=== PATIENT | female | born 1965 | race Caucasian/White ===

== ENCOUNTER 2018-01-17 14:29 | Emergency (ER) | payer OTHER ==
[~2018-01-17] VITALS: Ht 162.6 cm; Wt 84.4 kg
[2018-01-17 14:51] VITALS: BP 131/72
--- NOTE | 2018-01-17 15:03 | NUR ---
52/f BIB WITH C/O EPIGASTRIC PAIN , abdomen bloating, reflux x 8 days, progressively getting worse. seen by primary. sent home with rx of omeprazole with little improvement. DENIES N/V/D; SKIN IS PINK/WARM/DRY; AAOX4 WITH EVEN AND STEADY GAIT; LUNGS CLEAR BL.PATIENT STATES PAIN OF 5/10 AT THIS TIME. PATIENT POSITIONED FOR COMFORT; HOB ELEVATED; BEDRAILS UP X2; BED DOWN. ER MD MADE AWARE OF PT STATUS.
--- NOTE | 2018-01-17 15:28 | NUR ---
Patient being evaluated by DR GREER at bedside.
--- NOTE | 2018-01-17 15:42 | NUR ---
lab at bedside.
[2018-01-17 15:58] LABS: BASOPHILS % (AUTO) 0.4 % (0.0-2.0); EOSINOPHILS # (AUTO) 0.1 K/uL (0-0.4); EOSINOPHILS % (AUTO) 0.9 % (0.0-4.0); HEMATOCRIT 40.6 % (36-48); HEMOGLOBIN 13.3 g/dL (12.0-16.0); LYMPHOCYTES # (AUTO) 1.9 K/uL (2.5-16.5); LYMPHOCYTES % (AUTO) 20.6 % (20.5-51.1); MEAN CORPUSCULAR HEMOGLOBIN 27 pg (27-31); MEAN CORPUSCULAR HGB CONC 33 g/dL (33-37); MEAN CORPUSCULAR VOLUME 82.6 fL (80-94); MONOCYTES # (AUTO) 0.5 K/uL (0.8-1.0); NEUTROPHILS # (AUTO) 6.9 K/uL (1.8-7.7); NEUTROPHILS % (AUTO) 73.1 % (42.2-75.2); PLATELET COUNT (AUTO) 262 K/uL (140-450); RED BLOOD CELL COUNT(AUTO) 4.91 MIL/uL (4.20-5.40); RED CELL DISTRIBUTION WIDTH 14.6 % (11.6-13.7); WHITE BLOOD COUNT (AUTO) 9.4 K/uL (4.8-10.8)
[2018-01-17 16:01] LABS: APPEARANCE,URINE SL CLOUDY (CLEAR); BILIRUBIN,URINE NEGATIVE (NEGATIVE); BLOOD, URINE 1+ (NEGATIVE); COLOR,URINE YELLOW (YELLOW); LEUKOCYTE ESTERASE ,URINE 1+ (NEGATIVE); NITRITE, URINE NEGATIVE (NEGATIVE); PH,URINE 5.5 (5.0-9.0); UGLUCOSE NEGATIVE (NEGATIVE)
--- NOTE | 2018-01-17 16:01 | NUR ---
US AT BEDSIDE.
[2018-01-17 16:19] LABS: RBC,URINE 3-10 (FEW) /HPF (0-5); WBC,URINE 16-25 (MOD) /HPF (0-5)
[2018-01-17 16:28] LABS: CARBON DIOXIDE 27.6 mmol/L (21-32); CREATININE 0.6 mg/dL (0.6-1.3); POTASSIUM 3.6 mmol/L (3.5-5.1)
[2018-01-17 16:34] LABS: ALBUMIN 3.9 g/dL (3.4-5.0); TOTAL BILIRUBIN 0.4 mg/dL (0.0-1.0)
--- NOTE | 2018-01-17 16:50 | NUR ---
Patient being reevaluated by DR GREER at bedside.
--- NOTE | 2018-01-17 17:00 | NUR ---
Patient discharged with v/s stable. Written and verbal after care instructions given and explained. Patient alert, oriented and verbalized understanding of instructions. Ambulatory with steady gait. All questions addressed prior to discharge. ID band removed. Patient advised to follow up with PMD. Rx of CEPHALEXIN, ZOFRAN ODT, NORCO given. Patient educated on indication of medication including possible reaction and side effects. Opportunity to ask questions provided and answered.
[2018-01-17 17:01] VITALS: BP 136/68
== END 2018-01-17 17:00 | disposition home or self-care (01) ==
LOC: MED 14:29
DX: K80.80 Other cholelithiasis without obstruction (principal); N39.0 Urinary tract infection, site not specified
CPT/HCPCS: 36415; 76705; 80053; 81001; 81025; 83690; 84484; 85025; 87086; 93005; 99285; Q0092

== ENCOUNTER 2018-09-05 12:06 | Emergency (ER) | payer OTHER ==
[~2018-09-05] VITALS: Ht 162.6 cm; Wt 86.2 kg
[2018-09-05 12:08] VITALS: BP 155/92
[2018-09-05 14:23] VITALS: BP 140/80
== END 2018-09-05 14:23 | disposition home or self-care (01) ==
LOC: MED 12:06
DX: S16.1XXA Strain of muscle, fascia and tendon at neck level, initial encounter (principal); S39.012A Strain of muscle, fascia and tendon of lower back, initial encounter; S80.02XA Contusion of left knee, initial encounter; V47.5XXA Car driver injured in collision with fixed or stationary object in traffic accident, initial encounter; Y93.I9 Activity, other involving external motion; Y92.488 Other paved roadways as the place of occurrence of the external cause; Y99.8 Other external cause status
CPT/HCPCS: 73562; 99283

== ENCOUNTER 2019-08-07 11:07 | Emergency (ER) | payer OTHER ==
[~2019-08-07] VITALS: Ht 160 cm; Wt 86.2 kg
--- NOTE | 2019-08-07 11:11 | NUR ---
Patient ambulated to bed 2. RN evaluating patient at bedside.
[2019-08-07 11:16] VITALS: BP 177/83
--- NOTE | 2019-08-07 11:26 | NUR ---
PATIENT PRESENTS TO ED WITH DIZZINESS X 3 DAYS. PT DESCRIBES IT "SPINNING A LITTLE BIT." -N/V/D, -CP, -H/A, -NUMBNESS, -WEAKNESS, -FLU-LIKE SYMPTOMS. PT IS AOOX4, WITH STEADY GAIT, AMBULATORY. PERRL 3MM. GCS 15. PATIENT STATES PAIN OF 0/10 AT THIS TIME; VSS; PATIENT POSITIONED FOR COMFORT; HOB ELEVATED; BEDRAILS UP X2; BED DOWN. DR. ROE SAW PATIENT AT BEDSIDE. LMP: 2 MONTHS AGO PMH: NONE MEDS: NONE
[2019-08-07] MEDS ORDERED: NACL 0.9% 1,000 ML IV ONE (11:30)
[2019-08-07] MEDS ORDERED: ONDANSETRON 4 MG/2 ML VIAL IVP ONE (11:30)
[2019-08-07] MEDS ORDERED: MECLIZINE 25 MG TAB PO ONE (11:30)
[2019-08-07] MEDS ORDERED: hydrALAZINE 20 MG/ML VIAL IVP ONE (11:45)
[2019-08-07 11:50] LABS: BASOPHILS # (AUTO) 0.1 K/uL (0.00-0.22); BASOPHILS % (AUTO) 0.7 % (0.0-2.0); EOSINOPHILS # (AUTO) 0.1 K/uL (0-0.4); EOSINOPHILS % (AUTO) 0.7 % (0.0-4.0); HEMATOCRIT 44.4 % (36-48); HEMOGLOBIN 14.8 g/dL (12.0-16.0); LYMPHOCYTES # (AUTO) 2.1 K/uL (2.5-16.5); LYMPHOCYTES % (AUTO) 22.5 % (20.5-51.1); MEAN CORPUSCULAR HEMOGLOBIN 28 pg (27-31); MEAN CORPUSCULAR HGB CONC 33 g/dL (33-37); MEAN CORPUSCULAR VOLUME 84.3 fL (80-94); MONOCYTES # (AUTO) 0.4 K/uL (0.8-1.0); MONOCYTES % (AUTO) 4.7 % (1.7-9.3); NEUTROPHILS # (AUTO) 6.8 K/uL (1.8-7.7); NEUTROPHILS % (AUTO) 71.4 % (42.2-75.2); PLATELET COUNT (AUTO) 250 K/uL (140-450); RED BLOOD CELL COUNT(AUTO) 5.27 MIL/uL (4.20-5.40); RED CELL DISTRIBUTION WIDTH 13.7 % (11.6-13.7); WHITE BLOOD COUNT (AUTO) 9.5 K/uL (4.8-10.8)
[2019-08-07 12:17] LABS: ANION GAP 14.7 (8-16); CARBON DIOXIDE 27.8 mmol/L (21-32); CREATININE 0.7 mg/dL (0.6-1.3); POTASSIUM 3.5 mmol/L (3.5-5.1)
[2019-08-07 12:22] LABS: ALBUMIN 4.6 g/dL (3.4-5.0); TOTAL BILIRUBIN 0.4 mg/dL (0.0-1.0)
--- NOTE | 2019-08-07 13:00 | NUR ---
Patient discharged with v/s stable. Written and verbal after care instructions given and explained. Patient verbalized understanding. Ambulatory with steady gait. All questions addressed prior to discharge. Advised to follow up with PMD.
[2019-08-07 13:21] VITALS: BP 145/80
== END 2019-08-07 13:00 | disposition home or self-care (01) ==
LOC: MED 11:07
DX: R42 Dizziness and giddiness (principal); E86.0 Dehydration; R03.0 Elevated blood-pressure reading, without diagnosis of hypertension; R11.0 Nausea
CPT/HCPCS: 36415; 80053; 85025; 93005; 96360; 99284; J7030; J8597; J0360; J2405

== ENCOUNTER 2019-10-02 09:43 | Emergency (ER) | payer OTHER ==
[~2019-10-02] VITALS: Ht 162.6 cm; Wt 81.6 kg
[2019-10-02 09:49] VITALS: BP 172/62
--- NOTE | 2019-10-02 09:54 | NUR ---
TRIAGE COMPLETE. VSS. RETURNED TO LOBBY TO WAIT FOR BED IN ED.
--- NOTE | 2019-10-02 10:11 | NUR ---
PT TAKEN TO BED 7 WITH STEADY GAIT.
--- NOTE | 2019-10-02 10:16 | NUR ---
PT C/O EPIGASTRIC PAIN W/ BLOATING, CONSTIPATION, NAUSEA, LOSS OF APPETITE FOR 3 DAYS, AND OCCASIONAL MILD RUQ ABDOMINAL PAIN. PATIENT STATES PAIN OF 2/10 AT THIS TIME; VSS; PATIENT POSITIONED FOR COMFORT; HOB ELEVATED; BEDRAILS UP X1; BED DOWN. ER MD MADE AWARE OF PT STATUS.
--- NOTE | 2019-10-02 11:25 | NUR ---
pt is resting in the bed with eyes opened.
[2019-10-02 12:00] LABS: APPEARANCE,URINE SL CLOUDY (CLEAR); BILIRUBIN,URINE 1+ (NEGATIVE); BLOOD, URINE 2+ (NEGATIVE); COLOR,URINE YELLOW (YELLOW); LEUKOCYTE ESTERASE ,URINE 1+ (NEGATIVE); NITRITE, URINE NEGATIVE (NEGATIVE); UGLUCOSE NEGATIVE (NEGATIVE)
[2019-10-02 13:14] VITALS: BP 159/91
--- NOTE | 2019-10-02 13:14 | NUR ---
Patient discharged with v/s stable by Dr. Gonzalez. Rx of Macrodantin given. Patient educated on indication of medication including possible reaction and side effects. Opportunity to ask questions provided and answered.
== END 2019-10-02 13:14 | disposition home or self-care (01) ==
LOC: MED 09:43
DX: N39.0 Urinary tract infection, site not specified (principal)
CPT/HCPCS: 81001; 87086; 99283

== ENCOUNTER 2019-12-01 11:03 | Emergency (ER) | payer SELFPAY ==
[~2019-12-01] VITALS: Ht 162.6 cm; Wt 86.2 kg
[2019-12-01 11:12] VITALS: BP 160/92
--- NOTE | 2019-12-01 11:17 | NUR ---
URINE CUP HANDED TO PT FOR SAMPLE
--- NOTE | 2019-12-01 11:30 | NUR ---
RECEVIED A 54/F FROM TRIAGE WITH A C/O ANXIETY AND DRY MOUTH X 1 MONTH. NO DISTRESS NOTED. IN BED FOR MSE. HX--PANIC ATTACKS, GASTRITIS RX---NONE
[2019-12-01 12:42] VITALS: BP 160/92
== END 2019-12-01 12:42 | disposition home or self-care (01) ==
LOC: MED 11:03
DX: K21.9 Gastro-esophageal reflux disease without esophagitis (principal); F41.9 Anxiety disorder, unspecified
CPT/HCPCS: 81002; 81025; 99283

== ENCOUNTER 2020-07-27 10:43 | Emergency (ER) | payer OTHER ==
[~2020-07-27] VITALS: Ht 162.6 cm; Wt 81.6 kg
[2020-07-27 10:49] VITALS: BP 164/83
--- NOTE | 2020-07-27 10:58 | NUR ---
Dr. Roth is evaluating the patient at bedside.
--- NOTE | 2020-07-27 11:02 | NUR ---
Note henri in EDM - 07/27/20 at 1306 by MED1 20 y/o female c/o ear pain. Pt states both ears and cheeks feel "hot". Has rinsed with water, iced with no relief. Pt states she cannot sleep, unable to lay on affected area. Both ears and cheeks to jaw are red, slight swelling, warm to touch. Skin is intact. No pmh but states that this has stareted since September 2019. NKA or RX.
--- NOTE | 2020-07-27 11:03 | NUR ---
54 y/o A&OX4 female c/o chest pain 6/10 since 1800 last night. Pt describes pain as heart burn, denies N/V. Pt is calm, cooperative. Pt is sinus tachycardic HR 115, RR 18, BP 155/85, on room air at 97%.
[2020-07-27] MEDS ORDERED: ASPIRIN 81 MG TAB.CHEW PO ONE (11:10)
[2020-07-27] MEDS ORDERED: FAMOTIDINE 20 MG TAB PO ONE (11:10)
--- NOTE | 2020-07-27 11:28 | NUR ---
reuse technician at pt bedside for blood draw.
[2020-07-27 11:39] LABS: BASOPHILS % (AUTO) 0.4 % (0.0-2.0); EOSINOPHILS # (AUTO) 0.1 K/uL (0-0.4); EOSINOPHILS % (AUTO) 0.7 % (0.0-4.0); HEMATOCRIT 43.6 % (36-48); HEMOGLOBIN 14.6 g/dL (12.0-16.0); LYMPHOCYTES # (AUTO) 1.8 K/uL (2.5-16.5); MEAN CORPUSCULAR HEMOGLOBIN 28 pg (27-31); MEAN CORPUSCULAR HGB CONC 33 g/dL (33-37); MEAN CORPUSCULAR VOLUME 83.4 fL (80-94); MONOCYTES # (AUTO) 0.4 K/uL (0.8-1.0); MONOCYTES % (AUTO) 4.5 % (1.7-9.3); NEUTROPHILS # (AUTO) 6.6 K/uL (1.8-7.7); NEUTROPHILS % (AUTO) 74.4 % (42.2-75.2); PLATELET COUNT (AUTO) 217 K/uL (140-450); RED BLOOD CELL COUNT(AUTO) 5.23 MIL/uL (4.20-5.40); WHITE BLOOD COUNT (AUTO) 8.9 K/uL (4.8-10.8)
--- NOTE | 2020-07-27 11:40 | NUR ---
component lab tech at bedside.
[2020-07-27 11:49] LABS: ANION GAP 13.3 (8-16); CARBON DIOXIDE 27.4 mmol/L (21-32); CREATININE 0.7 mg/dL (0.6-1.3); POTASSIUM 3.7 mmol/L (3.5-5.1)
[2020-07-27 11:55] LABS: ALBUMIN 4.5 g/dL (3.4-5.0); TOTAL BILIRUBIN 0.6 mg/dL (0.0-1.0)
--- NOTE | 2020-07-27 13:12 | NUR ---
Pt resting, repositioned. VSS. Will continue to monitor.
--- NOTE | 2020-07-27 13:35 | NUR ---
Performed EKG per MD order.
[2020-07-27 14:48] VITALS: BP 158/74
--- NOTE | 2020-07-27 14:49 | NUR ---
Patient discharged with v/s stable. Written and verbal after care instructions given and explained. Patient alert, oriented and verbalized understanding of instructions. Ambulatory with steady gait. All questions addressed prior to discharge. ID band removed. Patient advised to follow up with PMD. Rx of omeprazole 40mg 1 cap PO daily, zofran ODT 40mg PO Q8hrs RN nausea/vomiting given. Patient educated on indication of medication including possible reaction and side effects. Opportunity to ask questions provided and answered.
== END 2020-07-27 14:49 | disposition home or self-care (01) ==
LOC: MED 10:43
DX: K29.70 Gastritis, unspecified, without bleeding (principal); R07.9 Chest pain, unspecified; R03.0 Elevated blood-pressure reading, without diagnosis of hypertension; F41.9 Anxiety disorder, unspecified
CPT/HCPCS: 36415; 71045; 80053; 84484; 85025; 93005; 99285

== ENCOUNTER 2020-10-25 12:25 | Emergency (ER) | payer OTHER ==
[~2020-10-25] VITALS: Ht 162.6 cm; Wt 81.6 kg
[2020-10-25 12:27] VITALS: BP 166/89
[2020-10-25 13:34] LABS: BASOPHILS % (AUTO) 0.4 % (0.0-2.0); EOSINOPHILS # (AUTO) 0.1 K/uL (0-0.4); EOSINOPHILS % (AUTO) 0.8 % (0.0-4.0); HEMATOCRIT 42.9 % (36-48); HEMOGLOBIN 14.2 g/dL (12.0-16.0); LYMPHOCYTES # (AUTO) 1.9 K/uL (2.5-16.5); LYMPHOCYTES % (AUTO) 17.6 % (20.5-51.1); MEAN CORPUSCULAR HEMOGLOBIN 28 pg (27-31); MEAN CORPUSCULAR HGB CONC 33 g/dL (33-37); MEAN CORPUSCULAR VOLUME 83.4 fL (80-94); MONOCYTES # (AUTO) 0.4 K/uL (0.8-1.0); MONOCYTES % (AUTO) 3.9 % (1.7-9.3); NEUTROPHILS # (AUTO) 8.2 K/uL (1.8-7.7); NEUTROPHILS % (AUTO) 77.3 % (42.2-75.2); PLATELET COUNT (AUTO) 248 K/uL (140-450); RED BLOOD CELL COUNT(AUTO) 5.15 MIL/uL (4.20-5.40); RED CELL DISTRIBUTION WIDTH 14.8 % (11.6-13.7); WHITE BLOOD COUNT (AUTO) 10.6 K/uL (4.8-10.8)
[2020-10-25 13:56] LABS: ALBUMIN 4.6 g/dL (3.4-5.0); ANION GAP 11.2 (8-16); CARBON DIOXIDE 27.6 mmol/L (21-32); CREATININE 0.7 mg/dL (0.6-1.3); POTASSIUM 3.8 mmol/L (3.5-5.1); TOTAL BILIRUBIN 0.3 mg/dL (0.0-1.0)
--- NOTE | 2020-10-25 14:24 | NUR ---
55 YEAR OLD PATIENT COMPLAINS OF CONSTIPATION X 2 DAYS. LAST BM 10/22/2020. HYPOACTIVE BOWEL SOUNDS THROUGHOUT. DENIES PRESENCE OF FLATUS, VERBALIZES FEELING BLOATED, 5/10 PAIN. PATIENT VERBALIZED INCREASED CONSUMPTION OF DAIRY-CONTAINING PRODUCTS AND DECREASED CONSUMPTION OF WATER. AO4, BREATHING EVEN AND UNLABORED, SKIN WARM AND DRY. BED IN LOWEST POSITION, LOCKED, X1 SIDERAIL UP. PMH - DENIED NKA
--- NOTE | 2020-10-25 14:50 | NUR ---
Patient discharged with v/s stable. Written and verbal after care instructions ABOUT ABDOMINAL PAIN given and explained in [place]. Patient alert, oriented and verbalized understanding of instructions. Ambulatory with steady gait. All questions addressed prior to discharge. ID band removed. Patient advised to follow up with PMD. Rx of DOCUSATE SODIUM given. Patient educated on indication of medication including possible reaction and side effects. Opportunity to ask questions provided and answered.
[2020-10-25 14:57] VITALS: BP 166/89
== END 2020-10-25 14:50 | disposition home or self-care (01) ==
LOC: MED 12:25
DX: R10.13 Epigastric pain (principal); R11.0 Nausea; K21.9 Gastro-esophageal reflux disease without esophagitis
CPT/HCPCS: 36415; 74018; 80053; 81002; 83690; 84484; 85025; 93005; 99285

== ENCOUNTER 2021-05-27 07:39 | Emergency (ER) | payer OTHER ==
[~2021-05-27] VITALS: Ht 165.1 cm; Wt 81.6 kg
[2021-05-27 07:42] VITALS: BP 145/77
--- NOTE | 2021-05-27 07:47 | NUR ---
Patient ambulated with steady to bed 7.
--- NOTE | 2021-05-27 07:52 | NUR ---
55/F presents to ED with c/o abdominal pain. Patient states she has had worsening epigastric pain radiating to her right upper and lower quadrants for 4 days. Patient states sharp 6/10 pain, denies taking anything at home, reports intermittent episodes of nausea, denies diarrhea or vomiting. Denies fever, chills, chest pain, states pain worsens with deep breath or touch.
[2021-05-27] MEDS ORDERED: KETOROLAC 30 MG/ML VIAL IM ONE (08:30)
[2021-05-27 08:44] LABS: APPEARANCE,URINE CLEAR (CLEAR); BILIRUBIN,URINE NEGATIVE (NEGATIVE); COLOR,URINE YELLOW (YELLOW); LEUKOCYTE ESTERASE ,URINE 1+ (NEGATIVE); NITRITE, URINE NEGATIVE (NEGATIVE); UGLUCOSE NEGATIVE (NEGATIVE)
[2021-05-27 08:51] LABS: BASOPHILS % (AUTO) 0.5 % (0.0-2.0); EOSINOPHILS # (AUTO) 0.1 K/uL (0-0.4); EOSINOPHILS % (AUTO) 0.8 % (0.0-4.0); HEMATOCRIT 45.4 % (36-48); HEMOGLOBIN 15.2 g/dL (12.0-16.0); LYMPHOCYTES % (AUTO) 22.8 % (20.5-51.1); MEAN CORPUSCULAR HEMOGLOBIN 28 pg (27-31); MEAN CORPUSCULAR HGB CONC 34 g/dL (33-37); MONOCYTES # (AUTO) 0.4 K/uL (0.8-1.0); MONOCYTES % (AUTO) 4.4 % (1.7-9.3); NEUTROPHILS # (AUTO) 6.1 K/uL (1.8-7.7); NEUTROPHILS % (AUTO) 71.5 % (42.2-75.2); PLATELET COUNT (AUTO) 248 K/uL (140-450); RED CELL DISTRIBUTION WIDTH 14.2 % (11.6-13.7); WHITE BLOOD COUNT (AUTO) 8.6 K/uL (4.8-10.8)
--- NOTE | 2021-05-27 08:51 | NUR ---
Labs collected bedside and handed to laborer [employer].
--- NOTE | 2021-05-27 08:55 | NUR ---
Ultrasound at bedside.
[2021-05-27 08:57] LABS: BLOOD, URINE 1+ (NEGATIVE); RBC,URINE 0-5 /HPF (0-5); WBC,URINE 0-5 /HPF (0-5)
[2021-05-27 09:04] LABS: ANION GAP 14.9 (8-16); CARBON DIOXIDE 27.9 mmol/L (21-32); CREATININE 0.7 mg/dL (0.6-1.3); POTASSIUM 3.8 mmol/L (3.5-5.1)
[2021-05-27 09:09] LABS: ALBUMIN 4.4 g/dL (3.4-5.0); TOTAL BILIRUBIN 0.5 mg/dL (0.0-1.0)
[2021-05-27] MEDS ORDERED: MAG-27 PO (09:31)
[2021-05-27] MEDS ORDERED: NAPR-54 PO (09:31)
[2021-05-27 09:42] VITALS: BP 130/51
--- NOTE | 2021-05-27 09:42 | NUR ---
Patient discharged with v/s stable. Written and verbal after care instructions given and explained ABOUT CHOLELITHIASIS AND ABDOMINAL PAIN. Patient alert, oriented and verbalized understanding of instructions. Ambulatory with steady gait. All questions addressed prior to discharge. ID band removed. Patient advised to follow up with PMD. Rx of MYLANTA AND NAPROSYN given. Patient educated on indication of medication including possible reaction and side effects. Opportunity to ask questions provided and answered.
== END 2021-05-27 09:42 | disposition admitted as inpatient to this hospital (09) ==
LOC: MED 07:39
DX: K80.20 Calculus of gallbladder without cholecystitis without obstruction (principal); K21.9 Gastro-esophageal reflux disease without esophagitis; Z79.899 Other long term (current) drug therapy
CPT/HCPCS: 36415; 76705; 80053; 81001; 83690; 85025; 87086; 93005; 96372; 99285; J1885; Q0092

== ENCOUNTER 2021-11-27 21:35 | Emergency (ER) | payer OTHER ==
[~2021-11-27] VITALS: Ht 162.6 cm; Wt 86.2 kg
[~2021-11-27 21:35] MED LIST: MAG-27 PO; NAPR-54 PO
[2021-11-27 21:45] VITALS: BP 150/78
--- NOTE | 2021-11-27 22:47 | NUR ---
at [facility] to exam patient.
--- NOTE | 2021-11-27 22:54 | NUR ---
Patient BIB by family from home. C/O Constipation x 4 days. Patient reported, felt bloating abdominal pain for 4 days and contipation. Hx GERD and Gallstone.
--- NOTE | 2021-11-27 23:14 | NUR ---
Patient transport to [facility] via wheelchair with radiology ct technologist.
[2021-11-27] MEDS ORDERED: BISM262C47 PO (23:45)
[2021-11-27] MEDS ORDERED: MAGNESIUM CITRATE 300 ML BTL PO ONE (23:45)
[2021-11-28 00:10] VITALS: BP 150/78
--- NOTE | 2021-11-28 00:10 | NUR ---
Patient discharged with v/s stable. Written and verbal after care instructions given and explained. Patient alert, oriented and verbalized understanding of instructions. Ambulatory with steady gait. All questions addressed prior to discharge. ID band removed. Patient advised to follow up with PMD. Rx of Pepto-Bismol given. Patient educated on indication of medication including possible reaction and side effects. Opportunity to ask questions provided and answered.
== END 2021-11-28 00:10 | disposition home or self-care (01) ==
LOC: MED 21:35
DX: K59.00 Constipation, unspecified (principal); R41.0 Disorientation, unspecified; K21.9 Gastro-esophageal reflux disease without esophagitis; Z87.19 Personal history of other diseases of the digestive system
CPT/HCPCS: 74018; 99282; 99283

== ENCOUNTER 2022-01-29 06:37 | Emergency (ER) | payer OTHER ==
[~2022-01-29] VITALS: Ht 162.6 cm; Wt 89.4 kg
[~2022-01-29 06:37] MED LIST changes: +BISM262C47 PO
[2022-01-29 06:44] VITALS: BP 123/74
--- NOTE | 2022-01-29 06:55 | NUR ---
PT TAKEN TO BED 09.
--- NOTE | 2022-01-29 07:10 | NUR ---
SPOKE TO , NO NURSING INTERVENTIONS REQUIRED.
[2022-01-29] MEDS ORDERED: IBUP-1842 PO (07:15)
[2022-01-29 07:19] VITALS: BP 123/74
== END 2022-01-29 07:19 | disposition home or self-care (01) ==
LOC: MED 06:37
DX: K80.50 Calculus of bile duct without cholangitis or cholecystitis without obstruction (principal); K21.9 Gastro-esophageal reflux disease without esophagitis; Z79.899 Other long term (current) drug therapy
CPT/HCPCS: 81002; 99282

== ENCOUNTER 2022-07-31 23:30 | Emergency (ER) | payer OTHER ==
[~2022-07-31] VITALS: Ht 165.1 cm; Wt 90.7 kg
[~2022-07-31 23:30] MED LIST changes: +IBUP-1842 PO
[2022-08-01 00:05] VITALS: BP 145/80
--- NOTE | 2022-08-01 00:08 | NUR ---
TO LOBBY A/W BED AMBULATORY
--- NOTE | 2022-08-01 01:05 | NUR ---
PT TAKEN TO BED 7
[2022-08-01] MEDS ORDERED: DICYCLOMINE 20 MG/2 ML VIAL IM ONE (01:25)
--- NOTE | 2022-08-01 01:37 | NUR ---
56 YO F BIB SELF WITH C/C OF 7/10 ABD PAIN X2DAYS. PT REPORTS NAUSEA. DENIES V/D. DENIES DIARRHEA. DENIES TAKING MEDICATION FOR PAIN. PT STATES SHE FEELS DISTENDED. DENIES HX, RX AND ALLERGIES
[2022-08-01 01:39] LABS: APPEARANCE,URINE CLEAR (CLEAR); BILIRUBIN,URINE NEGATIVE (NEGATIVE); BLOOD, URINE 3+ (NEGATIVE); COLOR,URINE YELLOW (YELLOW); LEUKOCYTE ESTERASE ,URINE 2+ (NEGATIVE); NITRITE, URINE NEGATIVE (NEGATIVE); UGLUCOSE NEGATIVE (NEGATIVE)
[2022-08-01 01:42] LABS: BASOPHILS # (AUTO) 0.1 K/uL (0.00-0.22); BASOPHILS % (AUTO) 0.6 % (0.0-2.0); EOSINOPHILS # (AUTO) 0.1 K/uL (0-0.4); EOSINOPHILS % (AUTO) 0.8 % (0.0-4.0); HEMATOCRIT 41.4 % (36-48); HEMOGLOBIN 13.6 g/dL (12.0-16.0); LYMPHOCYTES # (AUTO) 2.2 K/uL (2.5-16.5); LYMPHOCYTES % (AUTO) 15.6 % (20.5-51.1); MEAN CORPUSCULAR HEMOGLOBIN 27 pg (27-31); MEAN CORPUSCULAR HGB CONC 33 g/dL (33-37); MEAN CORPUSCULAR VOLUME 83.3 fL (80-94); MONOCYTES # (AUTO) 0.7 K/uL (0.8-1.0); MONOCYTES % (AUTO) 5.3 % (1.7-9.3); NEUTROPHILS # (AUTO) 10.9 K/uL (1.8-7.7); NEUTROPHILS % (AUTO) 77.7 % (42.2-75.2); PLATELET COUNT (AUTO) 235 K/uL (140-450); RED BLOOD CELL COUNT(AUTO) 4.97 MIL/uL (4.20-5.40); RED CELL DISTRIBUTION WIDTH 14.3 % (11.6-13.7)
[2022-08-01 01:58] LABS: ALBUMIN 3.9 g/dL (3.4-5.0); ANION GAP 12.7 (8-16); CARBON DIOXIDE 28.4 mmol/L (21-32); CREATININE 0.6 mg/dL (0.6-1.3); POTASSIUM 4.1 mmol/L (3.5-5.1); TOTAL BILIRUBIN 0.4 mg/dL (0.0-1.0)
[2022-08-01 02:11] LABS: RBC,URINE 0-5 /HPF (0-5); WBC,URINE >25 (MANY) /HPF (0-5)
--- NOTE | 2022-08-01 02:48 | NUR ---
PT ASLEEP WITH HOB ELEVATED. RESP EVEN AND UNLABORED.
[2022-08-01] MEDS ORDERED: CEPH-588 PO (03:04)
[2022-08-01 03:11] VITALS: BP 145/80
--- NOTE | 2022-08-01 03:28 | NUR ---
The patient's care was reviewed and supervised by Sheron Glaser RN, RN.
== END 2022-08-01 03:11 | disposition home or self-care (01) ==
LOC: MED 23:30
DX: N39.0 Urinary tract infection, site not specified (principal); K21.9 Gastro-esophageal reflux disease without esophagitis
CPT/HCPCS: 36415; 80053; 81001; 83690; 85025; 87086; 96372; 99283; J0500

== ENCOUNTER 2023-02-09 09:06 | Emergency (ER) | payer OTHER ==
[~2023-02-09] VITALS: Ht 162.6 cm; Wt 91.6 kg
[~2023-02-09 09:06] MED LIST changes: +CEPH-588 PO
[2023-02-09 09:23] VITALS: BP 154/92
--- NOTE | 2023-02-09 10:00 | NUR ---
C/O EPIGASTRIC PAIN X3 DAYS, STATES SLIGHT NAUSEA,DENIES ANY VD. TOOK IBUPROFEN FOR PAIN WITH NO EFFECT NKA PMH: DENIES
[2023-02-09] MEDS ORDERED: FAMO-90 PO (10:18)
== END 2023-02-09 11:00 | disposition home or self-care (01) ==
LOC: MED 09:06
DX: R06.00 Dyspnea, unspecified (principal); R03.0 Elevated blood-pressure reading, without diagnosis of hypertension; Z79.899 Other long term (current) drug therapy
CPT/HCPCS: 81025; 99282; 99283

== ENCOUNTER 2023-06-08 07:47 | Emergency (ER) | payer OTHER ==
[~2023-06-08] VITALS: Ht 162.6 cm; Wt 92.5 kg
[~2023-06-08 07:47] MED LIST changes: +FAMO-90 PO
[2023-06-08 07:53] VITALS: BP 154/92; PULSE 76; RESP 20; TEMP 98.7; O2SAT 97
[2023-06-08] MEDS ORDERED: FAMOTIDINE 20 MG TAB PO ONE (08:10)
[2023-06-08] MEDS ORDERED: KETOROLAC 15 MG/ML VIAL IM ONE (08:10)
[2023-06-08] MEDS ORDERED: ALUMINUM HYD/MAG/SIMETHICONE 30 ML UDC PO ONE (08:10)
[2023-06-08 08:40] LABS: BASOPHILS % (AUTO) 0.4 % (0.0-2.0); EOSINOPHILS # (AUTO) 0.1 K/uL (0-0.4); EOSINOPHILS % (AUTO) 1.1 % (0.0-4.0); HEMATOCRIT 43.3 % (36-48); HEMOGLOBIN 14.5 g/dL (12.0-16.0); LYMPHOCYTES # (AUTO) 2.4 K/uL (2.5-16.5); LYMPHOCYTES % (AUTO) 23.9 % (20.5-51.1); MEAN CORPUSCULAR HEMOGLOBIN 28 pg (27-31); MEAN CORPUSCULAR HGB CONC 34 g/dL (33-37); MEAN CORPUSCULAR VOLUME 82.4 fL (80-94); MONOCYTES # (AUTO) 0.6 K/uL (0.8-1.0); NEUTROPHILS # (AUTO) 6.9 K/uL (1.8-7.7); NEUTROPHILS % (AUTO) 68.6 % (42.2-75.2); PLATELET COUNT (AUTO) 248 K/uL (140-450); RED BLOOD CELL COUNT(AUTO) 5.26 MIL/uL (4.20-5.40); RED CELL DISTRIBUTION WIDTH 14.3 % (11.6-13.7)
[2023-06-08 09:02] LABS: ALANINE AMINOTRANSFERASE 52 U/L (12-78); ALBUMIN 4.5 g/dL (3.4-5.0); ALKALINE PHOSPHATASE 88 U/L (50-136); ANION GAP 14.7 (8-16); ASPARTATE AMINOTRANSFERASE 27 U/L (15-37); CALCIUM 9.7 mg/dL (8.5-10.1); CARBON DIOXIDE 27.1 mmol/L (21-32); CHLORIDE 104 mmol/L (98-107); CREATININE 0.7 mg/dL (0.6-1.3); GFR ARICAN-AMERICAN 112 mL/min (>90); GFR NON ARICAN-AMERICAN 92 mL/min (>90); GLUCOSE 122 mg/dL (74-106); LIPASE 110 U/L (73-393); POTASSIUM 3.8 mmol/L (3.5-5.1); SODIUM SERUM 142 mmol/L (136-145); TOTAL BILIRUBIN 0.4 mg/dL (0.0-1.0); TOTAL PROTEIN, SERUM 8.3 g/dL (6.4-8.2); UREA NITROGEN, BLOOD 13 mg/dL (7-18)
[2023-06-08] MEDS ORDERED: SUCR1TAB35 PO (09:23)
[2023-06-08 09:48] VITALS: BP 136/78; PULSE 72; RESP 16; TEMP 97.8; O2SAT 97
== END 2023-06-08 09:48 | disposition home or self-care (01) ==
LOC: MED 07:47
DX: R10.13 Epigastric pain (principal); K21.9 Gastro-esophageal reflux disease without esophagitis; Z79.899 Other long term (current) drug therapy
CPT/HCPCS: 36415; 71045; 80053; 83690; 84484; 85025; 93005; 99285; J1885

== ENCOUNTER 2023-07-17 10:50 | Emergency (ER) | payer OTHER ==
[~2023-07-17] VITALS: Ht 167.6 cm; Wt 74.8 kg
[~2023-07-17 10:50] MED LIST changes: +SUCR1TAB35 PO
[2023-07-17 11:01] VITALS: BP 154/95; PULSE 89; RESP 18; TEMP 98; O2SAT 98
[2023-07-17] MEDS ORDERED: ACETAMINOPHEN 325 MG TAB PO ONE (12:30)
[2023-07-17] MEDS ORDERED: ACET-9882 PO (13:51)
[2023-07-17 14:00] VITALS: BP 142/79; PULSE 74; RESP 17; O2SAT 98
== END 2023-07-17 14:01 | disposition home or self-care (01) ==
LOC: MED 10:50
DX: R51.9 Headache, unspecified (principal); I10 Essential (primary) hypertension; K21.9 Gastro-esophageal reflux disease without esophagitis; Z79.899 Other long term (current) drug therapy
CPT/HCPCS: 99282

== ENCOUNTER 2023-11-12 19:26 | Emergency (ER) | payer OTHER ==
[~2023-11-12] VITALS: Ht 162.6 cm; Wt 90.7 kg
[~2023-11-12 19:26] MED LIST changes: +ACET-9882 PO
[2023-11-12 19:53] VITALS: BP 175/90; PULSE 107; RESP 18; TEMP 98; O2SAT 97
[2023-11-12] MEDS ORDERED: CLONIDINE HYDROCHLORIDE 0.1 MG TAB PO ONE (20:05)
[2023-11-12 21:48] LABS: BASOPHILS % (AUTO) 0.6 % (0.0-2.0); EOSINOPHILS # (AUTO) 0.1 K/uL (0-0.4); EOSINOPHILS % (AUTO) 1.8 % (0.0-4.0); HEMATOCRIT 22.6 % (36-48); HEMOGLOBIN 7.3 g/dL (12.0-16.0); LYMPHOCYTES # (AUTO) 1.1 K/uL (2.5-16.5); LYMPHOCYTES % (AUTO) 17.5 % (20.5-51.1); MEAN CORPUSCULAR HEMOGLOBIN 28 pg (27-31); MEAN CORPUSCULAR HGB CONC 32 g/dL (33-37); MEAN CORPUSCULAR VOLUME 87.6 fL (80-94); MONOCYTES # (AUTO) 0.3 K/uL (0.8-1.0); MONOCYTES % (AUTO) 5.1 % (1.7-9.3); NEUTROPHILS # (AUTO) 4.8 K/uL (1.8-7.7); PLATELET COUNT (AUTO) 79 K/uL (140-450); RED BLOOD CELL COUNT(AUTO) 2.58 MIL/uL (4.20-5.40); RED CELL DISTRIBUTION WIDTH 15.2 % (11.6-13.7); WHITE BLOOD COUNT (AUTO) 6.4 K/uL (4.8-10.8)
[2023-11-12 22:22] LABS: ALANINE AMINOTRANSFERASE 43 U/L (12-78); ALBUMIN 4.4 g/dL (3.4-5.0); ALKALINE PHOSPHATASE 106 U/L (50-136); ASPARTATE AMINOTRANSFERASE 43 U/L (15-37); TOTAL BILIRUBIN 0.4 mg/dL (0.0-1.0); TOTAL PROTEIN, SERUM 9.5 g/dL (6.4-8.2)
[2023-11-12 22:32] LABS: ANION GAP 11.6 (8-16); CALCIUM 7.3 mg/dL (8.5-10.1); CREATININE 0.3 mg/dL (0.6-1.3); POTASSIUM 5.6 mmol/L (3.5-5.1)
[2023-11-12] MEDS ORDERED: FERR324T11 PO (22:40)
[2023-11-12 22:50] VITALS: BP 138/73; PULSE 93; RESP 16; O2SAT 95
== END 2023-11-12 22:50 | disposition home or self-care (01) ==
LOC: MED 19:26
DX: I10 Essential (primary) hypertension (principal); D64.9 Anemia, unspecified; K21.9 Gastro-esophageal reflux disease without esophagitis; Z79.899 Other long term (current) drug therapy
CPT/HCPCS: 36415; 71045; 80048; 80076; 83880; 84484; 85025; 93005; 99285; Q0092

== ENCOUNTER 2023-12-26 03:30 | Emergency (ER) | payer OTHER ==
[~2023-12-26 03:30] MED LIST changes: +FERR324T11 PO
[2023-12-26] MEDS: ACETAMINOPHEN EXTRA STRENGTH 500 MG TAB PO ONE (04:32)
[2023-12-26] MEDS: NACL 0.9% 1,000 ML IV ONE (04:32)
[2023-12-26] MEDS: diphenhydrAMINE 50 MG/ML VIAL IVP ONE (04:33)
[2023-12-26] MEDS: METOCLOPRAMIDE 10 MG/2 ML INJ VIAL IVP ONE (04:34)
== END 2023-12-26 06:50 | disposition home or self-care (01) ==
LOC: MED 03:30
DX: R51.9 Headache, unspecified (principal); I10 Essential (primary) hypertension; K21.9 Gastro-esophageal reflux disease without esophagitis; Z79.1 Long term (current) use of non-steroidal anti-inflammatories (NSAID); Z79.899 Other long term (current) drug therapy
CPT/HCPCS: 96361; 96374; 96375; 99284; J1200; J2765; J7030

== ENCOUNTER 2024-07-20 10:04 | Emergency (ER) | payer OTHER ==
[~2024-07-20] VITALS: Ht 165.1 cm; Wt 94.3 kg
[~2024-07-20 10:04] MED LIST changes: +NAPR-337 PO; -NAPR-54 PO; +SUCR-3 PO; -SUCR1TAB35 PO
[2024-07-20 10:10] VITALS: BP 136/76; PULSE 82; RESP 18; TEMP 98.8; O2SAT 99
[2024-07-20 11:06] LABS: APPEARANCE,URINE TURBID (CLEAR); BILIRUBIN,URINE NEGATIVE (NEGATIVE); BLOOD, URINE TRACE-I (NEGATIVE); COLOR,URINE YELLOW (YELLOW); LEUKOCYTE ESTERASE ,URINE NEGATIVE (NEGATIVE); NITRITE, URINE NEGATIVE (NEGATIVE); PH,URINE 6.5 (5.0-9.0); PROTEIN,URINE NEGATIVE (NEGATIVE); UGLUCOSE NEGATIVE (NEGATIVE); UROBILINOGEN,URINE 0.2 EU/dL (0.2 - 1)
[2024-07-20 11:16] LABS: BACTERIA,URINE 10-30 (MOD) /HPF (None Seen); RBC,URINE 0-5 /HPF (0-5); SQUAMOUS EPITHELIAL CELL,UR 4-10 (MOD) /LPF (0-3 (FEW)); WBC,URINE 0-5 /HPF (0-5)
[2024-07-20] MEDS ORDERED: ONDA8TAB87 PO (11:25)
[2024-07-20] MEDS ORDERED: IBUP-2213 PO (11:25)
[2024-07-20] MEDS ORDERED: OMEP40EC23 PO (11:25)
[2024-07-20 11:42] VITALS: BP 142/79; PULSE 79; RESP 18; O2SAT 99
== END 2024-07-20 11:42 | disposition home or self-care (01) ==
LOC: MED 10:04
DX: R10.13 Epigastric pain (principal); R11.0 Nausea; R03.0 Elevated blood-pressure reading, without diagnosis of hypertension; E11.9 Type 2 diabetes mellitus without complications; Z79.899 Other long term (current) drug therapy
CPT/HCPCS: 81001; 81025; 87086; 99283